=== PATIENT | female | born 1965 | race Hispanic/Latino ===

== ENCOUNTER 2022-09-19 17:22 | Emergency (ER) | payer BC ==
[~2022-09-19] VITALS: Ht 157.5 cm; Wt 59.9 kg
[2022-09-19] MEDS ORDERED: DiphenhydrAMINE HCL 50 MG/ML VIAL IV ONE (21:00)
[2022-09-19] MEDS ORDERED: SOLU-MEDROL 125MG VIAL IVP ONE (21:00)
[2022-09-19] MEDS ORDERED: FAMO-136 PO (21:30)
[2022-09-19] MEDS ORDERED: PRED20TA3 PO (21:30)
[2022-09-19] MEDS ORDERED: DIPH50 PO (21:30)
[2022-09-19 21:56] VITALS: BP 122/73
== END 2022-09-19 21:57 | disposition home or self-care (01) ==
LOC: EDH 17:22
DX: T78.49XA Other allergy, initial encounter (principal); Z90.710 Acquired absence of both cervix and uterus; Z88.8 Allergy status to other drugs, medicaments and biological substances; Z98.890 Other specified postprocedural states; X58.XXXA Exposure to other specified factors, initial encounter
CPT/HCPCS: 99284; 96374; 96375; J1200; J2930